=== PATIENT | female | born 1935 | race Caucasian/White ===

== ENCOUNTER → 2016-12-31 | Outpatient (CLI) | payer OTHER ==
--- NOTE | 2016-12-31 15:23 | MAMMOGRAPHY REPORT ---
UNILATERAL LEFT DIGITAL SCREENING MAMMOGRAM TOMOSYNTHESIS WITH CAD: 12/31/2016 CLINICAL HISTORY: Asymptomatic. Personal history of breast cancer. right mastectomy. TECHNIQUE: Breast tomosynthesis in addition to standard 2D mammography was performed. Current study was also evaluated with a Computer Aided Detection (CAD) system. Left CC and MLO 2-D and tomosynthes is images were obtained. COMPARISON: Comparison is made to exams dated: 12/17/2014 mammogram, 12/19/2015 mammogram, 12/14/2013 m ammogram, 12/07/2012 mammogram, 12/07/2011 mammogram, and 12/02/2010 mammogram - [facility] enter. BREAST COMPOSITION: There are scattered areas of fibroglandular density in the left breast. FINDINGS: There are no suspicious masses, calcifications, or areas of architectural distortion noted in the left breast. There has been no significant interval change compared to prior exams. The pat ient is status post right mastectomy. A linear scar marker denotes a scar on the left upper outer br east. Benign-appearing left anterior breast calcifications are stable compared to prior exams. IMPRESSION: ACR BI-RADS CATEGORY 2: BENIGN There is no mammographic evidence of malignancy. A 1 year screening mammogram is recommended. The pa tient will receive written notification of the results. Approximately 10% of breast cancers are not detected with mammography. A negative mammographic report should not delay biopsy if a clinically suggestive mass is present. Brenda Velasco M.D. ah/:12/31/2016 13:59:43 Commercial Designer: Etta FITZPATRICKR, M, [facility] letter sent: Normal 1/2 BI-RADS Code: ACR BI-RADS Category 2: Benign
== END | disposition home or self-care (01) ==
LOC: C.MAMM 12:08
PROVIDERS: ATTEND Internal Medicine
DX: Z12.31 Encounter for screening mammogram for malignant neoplasm of breast (principal); Z85.3 Personal history of malignant neoplasm of breast; Z90.11 Acquired absence of right breast and nipple

== ENCOUNTER → 2017-04-29 | Outpatient (CLI) | payer OTHER ==
[2017-04-29 17:44] LABS: URINE APPEARANCE CLEAR (CLEAR); URINE BILIRUBIN NEG (NEG); URINE COLOR YELLOW; URINE EPITHELIAL CELL AUTO 0-5 /lpf (0-5); URINE NITRITE NEG (NEG); URINE PH 6.5 (4.5-7.5); URINE SPECIFIC GRAVITY 1.012 (1.000-1.030); UROBILINOGEN NEG (NEG); ZZUR CULT IF INDIC CLEAN CATCH NO
[2017-04-29 17:47] LABS: MANUAL MICROSCOPIC REQUIRED? NO; REVIEW REQ? NO
[2017-04-29 17:51] LABS: ALT/SGPT 17 U/L (12-78); AST/SGOT 19 U/L (15-37); BASO % 0.3 %; BASO ABS # 0.01 K/uL (0-0.2); BLOOD UREA NITROGEN 15 mg/dl (7-18); BUN/CREATININE RATIO 15.9 (10-20); CALCIUM 9.6 mg/dl (8.5-10.1); CARBON DIOXIDE 30 mmol/L (21-32); CHLORIDE 102 mmol/L (98-107); COMPLETE YES; CREATININE 0.96 mg/dl (0.60-1.20); EOS % 3.5 %; GLUCOSE 101 mg/dl (70-99); HEMATOCRIT 34.2 % (37-47); IG% 0.3 %; LYMPH % 41.5 %; LYMPH ABS # 1.53 K/uL (1.2-3.4); MEAN CELL VOLUME 98.3 fL (80-100); MEAN CORPUSCULAR HEMOGLOBIN 32.5 pg (25-34); MEAN PLATELET VOLUME 11.4 fL (7.4-10.4); MONO % 11.7 %; NEUT % 42.7 %; PLATELET COUNT 234 K/uL (130-400); POTASSIUM 4.8 mmol/L (3.5-5.1); RED BLOOD COUNT 3.48 M/uL (4.2-5.4); SODIUM 136 mmol/L (136-145); WHITE BLOOD COUNT 3.69 K/uL (4.8-10.8)
[2017-04-29 17:53] LABS: ALB/GLOB RATIO 0.9 (0.9-2); ALKALINE PHOSPHATASE 74 U/L (45-117)
[2017-04-30 06:09] LABS: ESTIMATED AVERAGE GLUCOSE 100 mg/dl; HA1C FLAG Normal (Normal)
== END | disposition home or self-care (01) ==
LOC: C.LABBFT 13:56
PROVIDERS: ATTEND Internal Medicine
DX: R73.01 Impaired fasting glucose (principal); E55.9 Vitamin D deficiency, unspecified; D47.2 Monoclonal gammopathy

== ENCOUNTER → 2017-05-05 | Outpatient (CLI) | payer OTHER ==
[2017-05-05 12:19] LABS: BASO % 0.3 %; BASO ABS # 0.01 K/uL (0-0.2); COMPLETE YES; EOS % 3.6 %; HEMATOCRIT 33.3 % (37-47); IG% 0.3 %; LYMPH % 28.9 %; LYMPH ABS # 1.12 K/uL (1.2-3.4); MEAN CELL VOLUME 98.2 fL (80-100); MEAN CORPUSCULAR HEMOGLOBIN 32.7 pg (25-34); MEAN CORPUSCULAR HGB CONC 33.3 g/dl (32-36); MEAN PLATELET VOLUME 10.7 fL (7.4-10.4); MONO % 11.6 %; NEUT % 55.3 %; PLATELET COUNT 218 K/uL (130-400); RED BLOOD COUNT 3.39 M/uL (4.2-5.4); WHITE BLOOD COUNT 3.87 K/uL (4.8-10.8)
[2017-05-05 17:46] LABS: FERRITIN 255.7 ng/ml (8.0-388.0)
== END | disposition home or self-care (01) ==
LOC: C.LABBFT 10:25
PROVIDERS: ATTEND Internal Medicine
DX: D64.9 Anemia, unspecified (principal)

== ENCOUNTER → 2017-11-02 | Outpatient (CLI) | payer OTHER ==
[2017-11-02 16:53] LABS: BASO % 0.6 %; BASO ABS # 0.02 K/uL (0-0.2); EOS % 2.6 %; EOS ABS # 0.09 K/uL (0-0.5); HEMATOCRIT 33.9 % (37-47); HEMOGLOBIN 11.6 g/dL (12.0-16.0); IG# 0.01 K/uL (0.00-0.02); LYMPH % 42.2 %; LYMPH ABS # 1.45 K/uL (1.2-3.4); MEAN CORPUSCULAR HEMOGLOBIN 32.9 pg (25-34); MEAN CORPUSCULAR HGB CONC 34.2 g/dl (32-36); MEAN PLATELET VOLUME 10.9 fL (7.4-10.4); MONO % 10.5 %; MONO ABS # 0.36 K/uL (0.11-0.59); NEUT % 43.8 %; NEUT ABS # 1.51 K/uL (1.4-6.5); PLATELET COUNT 223 K/uL (130-400); RED CELL DISTRIBUTION WIDTH CV 13.9 % (11.5-14.5); RED CELL DISTRIBUTION WIDTH SD 48.2 fL (36.4-46.3); WHITE BLOOD COUNT 3.44 K/uL (4.8-10.8)
== END | disposition home or self-care (01) ==
LOC: C.LABBFT 14:17
PROVIDERS: ATTEND Internal Medicine
DX: D64.9 Anemia, unspecified (principal)

== ENCOUNTER → 2018-01-06 | Outpatient (CLI) | payer OTHER ==
--- NOTE | 2018-01-10 07:43 | MAMMOGRAPHY REPORT ---
UNILATERAL LEFT DIGITAL SCREENING MAMMOGRAM TOMOSYNTHESIS WITH CAD: 01/06/2018 CLINICAL HISTORY: Asymptomatic. Personal history of breast cancer. TECHNIQUE: The study was acquired using full field digital technology and interpreted from soft copy. Breast tomosynthesis in addition to standard 2D mammography was performed. Current study was also ev aluated with a Computer Aided Detection (CAD) system. COMPARISON: Comparison is made to exams dated: 12/31/2016 mammogram, 12/19/2015 mammogram, 12/17/2014 m ammogram, 12/14/2013 mammogram, 12/07/2012 mammogram, and 12/07/2011 mammogram - [facility] enter. BREAST COMPOSITION: There are scattered areas of fibroglandular density in left breast. FINDINGS: There are no suspicious masses, calcifications, or areas of architectural distortion noted within the left breast. There has been no significant interval change compared to prior exams. A li near scar marker denotes a scar on the left upper outer breast. Benign-appearing calcifications in t he left anterior breast are decreased compared to prior exams. An asymmetry in the left superior meri ast middle depth on the MLO view has the appearance of normal fibroglandular tissue on the tomosynthe sis images. IMPRESSION: There is no mammographic evidence of malignancy in the left breast. A 1 year screening mammogram is r ecommended.(01/07/2019) The patient will receive written notification of the results. Some breast cancers are not detected with mammography. A negative mammographic report should not monica y biopsy if a clinically suggestive mass is present. Brenda Velasco M.D. ah/:01/06/2018 16:54:11 Rail Washer: Nerissa Headley [facility] letter sent: Normal 1/2 BI-RADS Code: ACR BI-RADS Category 2: Benign
== END | disposition home or self-care (01) ==
LOC: C.MAMM 12:47
PROVIDERS: ATTEND Internal Medicine
DX: Z12.31 Encounter for screening mammogram for malignant neoplasm of breast (principal); Z90.11 Acquired absence of right breast and nipple; Z85.3 Personal history of malignant neoplasm of breast

== ENCOUNTER 2018-01-25 16:41 | Emergency (ER) | payer OTHER ==
[~2018-01-25] VITALS: Ht 160 cm; Wt 50.3 kg
[2018-01-25 16:44] VITALS: TEMP 36.7; Ht 160 cm; Wt 50.3 kg
[2018-01-25] MEDS ORDERED: SODIUM CHLORIDE 0.9% 500ML 500 ML IV STA (17:12)
[2018-01-25] MEDS ORDERED: OPTIRAY 320 IV PRN (17:30)
[2018-01-25] MEDS ORDERED: ASPI81TA28 PO (17:31)
[2018-01-25] MEDS ORDERED: PROP80TA2 PO (17:31)
[2018-01-25] MEDS ORDERED: LOSA1TAB38 PO (17:31)
[2018-01-25] MEDS ORDERED: RANI150T85 PO (17:31)
[2018-01-25] MEDS ORDERED: TIMO0.5S2 OP (17:31)
[2018-01-25] MEDS ORDERED: CHOL20007 PO (17:31)
[2018-01-25] MEDS ORDERED: TRAM-10 PO (17:31)
--- NOTE | 2018-01-25 17:32 | EMERGENCY ROOM VISIT NOTE ---
History Report prepared by Marlee: Ari Harris Under the Supervision of: Dr. To Sharp M.D. First contact with patient: 17:08 Chief Complaint: SHORTNESS OF BREATH Stated Complaint: STROKE LIKE SYMPTOMS Nursing Triage Summary: Patient presents to triage via wheelchair with her son, daughter and daughter in law. Patient states "I am having shortness of breath which started this afternoon. I had a test this morning. I was a little bit dizzy when I came home today. I was having some back pain after the test so, on an empty stomach, I took some of my tamadol." Patient denies any chest pain. No headache or dizziness currently. Patient is able to move all of her extremities. Patient is able to answer all questions appropriately. History of Present Illness The patient is a 82 year old female who presents to the Emergency Room with complaints of constant fatigue and confusion beginning this morning after a stress test done through [facility]. The patient reports that the reason for her stress test this morning was shortness of breath that she has had for awhile. She notes that she was able to complete the test. Family reports that after the test, they noticed that the patient seemed exhausted and confused, noting slightly slurred speech and stating that her answers to questions did not make much sense. The family states that these symptoms in the patient currently seem improved. They report that the last time she ate solid food was last night, and stated that they stopped for food on the way home from the stress test, during which the patient didn't eat because she was too "dry." They state that the patient did have something to drink at that time. The patient reports that she is not currently feeling short of breath. Source of History: patient, family Onset: this morning Position: other (global) Quality: other (confusion and fatigue) Timing: constant (but currently seems to be improved) Note: no current shortness of breath Review of Systems See HPI for pertinent positives and negatives. A total of ten systems were reviewed and were otherwise negative. Past Medical & Surgical Medical Problems: (1) Chronic back pain Family History Patient reports no known family medical history. Social History Smoking Status: Former Smoker Current/Historical Medications Scheduled Aspirin (Aspirin Ec), 81 MG PO DAILY Cholecalciferol (Vitamin D3), 2,000 UNITS PO DAILY Losartan Potassium (Cozaar), 100 MG PO DAILY Propranolol (Inderal), 80 MG PO DAILY Ranitidine (Zantac), 150 MG PO BID Timolol Maleate (Ophth) (Timoptic-Xe 0.5% Oph), 1 DROPS OP QAM Tramadol (Ultram), 50 MG PO QAM Allergies Coded Allergies: No Known Allergies (Verified , 01/25/18) Physical Exam Vital Signs Date Time Temp Pulse Resp B/P (MAP) Pulse Ox O2 Delivery O2 Flow Rate FiO2 01/25/18 21:11 58 18 169/71 98 01/25/18 18:30 65 20 177/85 97 Room Air 01/25/18 18:00 61 01/25/18 17:51 99 Room Air 01/25/18 16:53 95 Room Air 01/25/18 16:44 36.7 55 16 146/69 99 Room Air Physical Exam GENERAL: Awake, alert, well-appearing, in no acute distress HENT: Normocephalic, atraumatic. Mucous membranes are dry. EYES: Normal conjunctiva. Sclera non-icteric. NECK: Supple. No nuchal rigidity. FROM. No JVD. RESPIRATORY: Clear to auscultation. CARDIAC: Regular rate, normal rhythm. Extremities warm and well perfused. Pulses equal. ABDOMEN: Soft, non-distended. No tenderness to palpation. No rebound or guarding. No masses. RECTAL: Deferred. MUSCULOSKELETAL: Chest examination reveals no tenderness. The back is symmetrical on inspection without obvious abnormality. There is no CVA tenderness to palpation. No joint edema. LOWER EXTREMITIES: Calves are equal size bilaterally and non-tender. No edema. No discoloration. NEURO: Normal sensorium. No sensory or motor deficits noted. Mild confusion noted, and patient did not remember that she just used the restroom. Normal cerebellar function with [id number], alternating palms, [id number] SKIN: No rash or jaundice noted. Medical Decision & Procedures ER Provider Diagnostic Interpretation: Radiology results as stated below per my review and radiologist interpretation: HEAD & NECK CTA HISTORY: Stroke symptoms. Weakness. TECHNIQUE: Multiaxial CT images of the head were performed following the intravenous administration of contrast to evaluate the major cerebral vessels. Multiaxial CT images of the neck were also performed following the intravenous administration of contrast to evaluate the major cervical vessels. Maximum intensity projection images were also obtained. A dose lowering technique was utilized adhering to the principles of ALARA. COMPARISON: Head CT 01/25/2018. FINDINGS: There is no mass, hematoma, midline shift, or acute infarct. Visualized intracranial internal carotid arteries, distal vertebral arteries, and basilar artery are widely patent. There is no significant stenosis, occlusion, or aneurysm seen within the bilateral ACAs, MCAs, or electric motor controls assembler. The aortic arch and proximal great vessels are widely patent. There is no significant stenosis, occlusion, or dissection identified within the bilateral common carotid, internal carotid, or vertebral arteries. 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 Mild calcified plaque within the right carotid bifurcation. IMPRESSION: 1. No significant stenosis, occlusion, or aneurysm within the [place]. 2. No significant stenosis, occlusion, or dissection identified within the carotid or vertebral arteries. Electronically signed by: Vasquez Treviño M.D. 01/25/2018 7:27 PM Dictated Date/Time: 01/25/2018 7:21 PM HEAD & NECK CTA HISTORY: Stroke symptoms. Weakness. TECHNIQUE: Multiaxial CT images of the head were performed following the intravenous administration of contrast to evaluate the major cerebral vessels. Multiaxial CT images of the neck were also performed following the intravenous administration of contrast to evaluate the major cervical vessels. Maximum intensity projection images were also obtained. A dose lowering technique was utilized adhering to the principles of ALARA. COMPARISON: Head CT 01/25/2018. FINDINGS: There is no mass, hematoma, midline shift, or acute infarct. Visualized intracranial internal carotid arteries, distal vertebral arteries, and basilar artery are widely patent. There is no significant stenosis, occlusion, or aneurysm seen within the bilateral ACAs, MCAs, or electric motor controls assembler. The aortic arch and proximal great vessels are widely patent. There is no significant stenosis, occlusion, or dissection identified within the bilateral common carotid, internal carotid, or vertebral arteries. 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 Mild calcified plaque within the right carotid bifurcation. IMPRESSION: 1. No significant stenosis, occlusion, or aneurysm within the [place]. 2. No significant stenosis, occlusion, or dissection identified within the carotid or vertebral arteries. Electronically signed by: Vasquez Treviño M.D. 01/25/2018 7:27 PM Dictated Date/Time: 01/25/2018 7:21 PM CHEST ONE VIEW PORTABLE CLINICAL HISTORY: 82 years-old Female presenting with CHEST PAIN. TECHNIQUE: Portable upright AP view of the chest was obtained. COMPARISON: 11/07/2015. FINDINGS: Atherosclerosis of the aortic arch. Cardiac silhouette normal in size. Lungs are hyperinflated. Heterogeneously lucent lungs. No focal opacity. No large effusion or pneumothorax. Degenerative changes of the thoracic spine. Cholecystectomy clips noted. Multiple external leads project over the upper abdomen. IMPRESSION: 1. Findings suggest emphysema. No focal infiltrate to suggest pneumonia. Electronically signed by: Adrien Hansen M.D. 01/25/2018 6:21 PM Dictated Date/Time: 01/25/2018 6:[address] CT DOSE: HISTORY: Stroke symptoms. TECHNIQUE: Multiaxial CT images of the head were performed without the use of intravenous contrast. Automated exposure control was utilized for this study. A dose lowering technique was utilized adhering to the principles of ALARA. Comparison: None. Findings: The paranasal sinuses and mastoid air cells are clear. The calvarium and skull base are intact. There is no mass, hematoma, midline shift, acute infarct. White matter hypodensity is nonspecific but suggestive of microvascular ischemic change. The ventricles and sulci demonstrate mild age-related involutional changes. Punctate hypodense foci within the right occipital lobe on image 12 likely represent old small infarcts. Impression: No acute intracranial abnormality. Chronic changes as described above. Electronically signed by: Vasquez Treviño M.D. 01/25/2018 7:21 PM Dictated Date/Time: 01/25/2018 7:18 PM Laboratory Results 01/25/18 18:12 Red Blood Count 3.54, Mean Corpuscular Volume 95.5, Mean Corpuscular Hemoglobin 33.3, Mean Corpuscular Hemoglobin Concent 34.9, Mean Platelet Volume 10.8, Neutrophils (%) (Auto) 60.8, Lymphocytes (%) (Auto) 27.3, Monocytes (%) (Auto) 9.7, Eosinophils (%) (Auto) 1.6, Basophils (%) (Auto) 0.3, Neutrophils # (Auto) 2.25, Lymphocytes # (Auto) 1.01, Monocytes # (Auto) 0.36, Eosinophils # (Auto) 0.06, Basophils # (Auto) 0.01 01/25/18 18:12 Test 01/25/18 17:15 01/25/18 18:12 01/25/18 18:22 Urine Color YELLOW Urine Appearance CLEAR (CLEAR) Urine pH 5.5 (4.5-7.5) Urine Specific [place] 1.012 (1.000-1.030) Urine Protein NEG (NEG) Urine Glucose (UA) NEG (NEG) Urine Ketones NEG (NEG) Urine Occult Blood NEG (NEG) Urine Nitrite NEG (NEG) Urine Bilirubin NEG (NEG) Urine Urobilinogen NEG (NEG) Urine Leukocyte Esterase TRACE (NEG) Urine WBC (Auto) 1-5 /hpf (0-5) Urine RBC (Auto) 0-4 /hpf (0-4) Urine Hyaline Casts (Auto) 1-5 /lpf (0-5) Urine Epithelial Cells (Auto) >30 /lpf (0-5) Urine Bacteria (Auto) NEG (NEG) White Blood Count 3.70 K/uL (4.8-10.8) Red Blood Count 3.54 M/uL (4.2-5.4) Hemoglobin 11.8 g/dL (12.0-16.0) Hematocrit 33.8 % (37-47) Mean Corpuscular Volume 95.5 fL (80-100) Mean Corpuscular Hemoglobin 33.3 pg (25-34) Mean Corpuscular Hemoglobin Concent 34.9 g/dl (32-36) Platelet Count 196 K/uL (130-400) Mean Platelet Volume 10.8 fL (7.4-10.4) Neutrophils (%) (Auto) 60.8 % Lymphocytes (%) (Auto) 27.3 % Monocytes (%) (Auto) 9.7 % Eosinophils (%) (Auto) 1.6 % Basophils (%) (Auto) 0.3 % Neutrophils # (Auto) 2.25 K/uL (1.4-6.5) Lymphocytes # (Auto) 1.01 K/uL (1.2-3.4) Monocytes # (Auto) 0.36 K/uL (0.11-0.59) Eosinophils # (Auto) 0.06 K/uL (0-0.5) Basophils # (Auto) 0.01 K/uL (0-0.2) RDW Standard Deviation 46.9 fL (36.4-46.3) RDW Coefficient of Variation 13.4 % (11.5-14.5) Immature Granulocyte % (Auto) 0.3 % Immature Granulocyte # (Auto) 0.01 K/uL (0.00-0.02) Prothrombin Time 11.2 SECONDS (9.0-12.0) Prothromb Time International Ratio 1.1 (0.9-1.1) Est Creatinine Clear Calc Drug Dose 30.5 ml/min Estimated GFR () 54.0 Estimated GFR (Non- 46.6 BUN/Creatinine Ratio 14.4 (10-20) Calcium Level 8.3 mg/dl (8.5-10.1) Phosphorus Level 2.7 mg/dl (2.5-4.9) Magnesium Level 2.2 mg/dl (1.8-2.4) Total Bilirubin 0.9 mg/dl (0.2-1) Direct Bilirubin 0.3 mg/dl (0-0.2) Aspartate Amino Transf (AST/SGOT) 14 U/L (15-37) Alanine Aminotransferase (ALT/SGPT) 15 U/L (12-78) Alkaline Phosphatase 75 U/L (45-117) Troponin I 0.021 ng/ml (0-0.045) Pro-B-Type Natriuretic Peptide 2135 pg/ml (0-1800) Total Protein 8.1 gm/dl (6.4-8.2) Albumin 3.9 gm/dl (3.4-5.0) Lipase 202 U/L (73-393) Bedside Hemoglobin 11.9 g/dl (12.0-16.0) Bedside Hematocrit 35 % (37-47) Bedside Sodium 137 mEq/L (135-144) Bedside Potassium 4.3 mEq/L (3.3-5.0) Bedside Chloride 97 mEq/L (101-112) Bedside Total CO2 28 mEq/l (24-31) Anion Gap 17.0 mmol/L (16-25) Bedside Blood Urea Nitrogen 16 mg/dl (7-18) Bedside Creatinine 1.0 mg/dl (0.6-1.3) Bedside Glucose (other) 106 mg/dl (70-99) Bedside Ionized Calcium (Narciso) 1.06 mmol/l (1.12-1.32) Laboratory results reviewed by me Medications Administered Medications (Trade) Dose Ordered Sig/[place] Route Start Time Stop Time Status Last Admin Dose Admin Sodium Chloride 500 ml @ 999 mls/hr Q31M STAT IV 01/25/18 17:12 01/25/18 17:42 DC 01/25/18 18:10 999 MLS/HR ECG Per My Interpretation Indication: other (confusion, exhaustion) Rate (beats per minute): 63 Rhythm: normal sinus Findings: no acute ischemic change, other (normal axis) ED Course 1710: The patient was evaluated in room A3. A complete history and physical exam was performed. 1958: I reevaluated the patient. Discussed results and discharge instructions: She verbalized understanding and agreement. The patient is ready for discharge. Medical Decision I reviewed the patient's past medical history, medications, and the nursing notes as described above. Differential diagnosis: Etiologies such as metabolic, infection, hypo/hyperglycemia, electrolyte abnormalities, cardiac sources, intracerebral event, toxicologic, neurologic, as well as others were entertained. The patient is a pleasant 82-year-old woman who presents emergency department with increased confusion after having an outpatient nuclear stress test today which was arranged by her PCP for intermittent shortness of breath per HPI. Family report that the patient had fasted for her stress test today and on the way home was able to drink fluids after stopping at [employer] but still has not eaten. However she did take a tramadol this morning for her back pain and then again when she got home. Arrival the patient is no acute distress, afebrile stable vital signs. On exam, the patient appears clinically dry. He is neurologically intact including normal cerebellar function with finger-to- nose, alternating palms, [id number]. The patient does seem to have some mild difficulty following complicated commands when asked to perform heel to tadeo, which is not uncommon in a patient in this age group however the family reports this is not her normal functioning which is normally very sharp. EKG unremarkable. Troponin within normal limits. WBC 3.7 nonspecific. Chemistry unremarkable. UA negative for infection. Chest x-ray negative. CT of the head and neck unremarkable for ischemia or large vessel occlusion. Patient subsequently feeling improved after IV fluid hydration. Son at bedside feeling reassured of her improvement we feel that her symptoms are most likely related to her prolonged fasting throughout today. I did explain to the family that the only way to truly rule out a possible stroke would be to perform an MRI. However, they feel comfortable with plan for discharge and PCP follow-up. They are aware to return if the patient symptoms return. Findings and plan for follow -up reviewed with patient. Patient agreeable and d/c'd per discharge instructions. Medication Reconcilliation Current Medication List: was personally reviewed by me Blood Pressure Screening Patient's blood pressure: Elevated blood pressure Blood pressure disposition: Elevated BP felt to be situational Impression Primary Impression: Intermittent confusion Additional Impression: Dehydration Scribe Attestation The scribe's documentation has been prepared under my direction and personally reviewed by me in its entirety. I confirm that the note above accurately reflects all work, treatment, procedures, and medical decision making performed by me. Departure Information Dispostion Home / Self-Care Referrals Jeremiah Arriaga M.D. (PCP) Forms HOME CARE DOCUMENTATION FORM, IMPORTANT VISIT INFORMATION Patient Instructions ED Confusion, ED Dehydration, My [facility] Additional Instructions Please follow up with your primary care physician in the next 1-3 days for re- evaluation Your symptoms are likely due to your fasting today. Otherwise, your exam, EKG, chest xray, lab results, CT scan of your head and neck with contrast did not show signs of an emergent condition at this time. Drink plenty of fluids to ensure hydration. Return to the emergency department for worsening symptoms as described in the accompanying instructions. Problem Qualifiers
[2018-01-25 17:51] VITALS: O2SAT 99
[2018-01-25 18:23] LABS: BASO % 0.3 %; BASO ABS # 0.01 K/uL (0-0.2); EOS % 1.6 %; EOS ABS # 0.06 K/uL (0-0.5); HEMATOCRIT 33.8 % (37-47); HEMOGLOBIN 11.8 g/dL (12.0-16.0); IG# 0.01 K/uL (0.00-0.02); LYMPH % 27.3 %; LYMPH ABS # 1.01 K/uL (1.2-3.4); MEAN CELL VOLUME 95.5 fL (80-100); MEAN CORPUSCULAR HEMOGLOBIN 33.3 pg (25-34); MEAN CORPUSCULAR HGB CONC 34.9 g/dl (32-36); MEAN PLATELET VOLUME 10.8 fL (7.4-10.4); MONO % 9.7 %; MONO ABS # 0.36 K/uL (0.11-0.59); NEUT % 60.8 %; NEUT ABS # 2.25 K/uL (1.4-6.5); PLATELET COUNT 196 K/uL (130-400); RED CELL DISTRIBUTION WIDTH CV 13.4 % (11.5-14.5); RED CELL DISTRIBUTION WIDTH SD 46.9 fL (36.4-46.3)
--- NOTE | 2018-01-25 18:23 | DIAGNOSTIC IMAGING REPORT ---
CHEST ONE VIEW PORTABLE CLINICAL HISTORY: 82 years-old Female presenting with CHEST PAIN. TECHNIQUE: Portable upright AP view of the chest was obtained. COMPARISON: 11/07/2015. FINDINGS: Atherosclerosis of the aortic arch. Cardiac silhouette normal in size. Lungs are hyperinflated. Heterogeneously lucent lungs. No focal opacity. No large effusion or pneumothorax. Degenerative changes of the thoracic spine. Cholecystectomy clips noted. Multiple external leads project over the upper abdomen. IMPRESSION: 1. Findings suggest emphysema. No focal infiltrate to suggest pneumonia. Electronically signed by: Adrien Hansen M.D. 01/25/2018 6:21 PM Dictated Date/Time: 01/25/2018 6:09 PM
[2018-01-25 18:33] LABS: INR 1.1 (0.9-1.1)
[2018-01-25 18:50] LABS: ALBUMIN 3.9 gm/dl (3.4-5.0); CALCIUM 8.3 mg/dl (8.5-10.1); CREATININE 1.09 mg/dl (0.60-1.20); PHOSPHORUS 2.7 mg/dl (2.5-4.9); POTASSIUM 4.2 mmol/L (3.5-5.1); TOTAL PROTEIN 8.1 gm/dl (6.4-8.2)
--- NOTE | 2018-01-25 19:22 | DIAGNOSTIC IMAGING REPORT ---
HEAD CT NONCONTRAST CT DOSE: HISTORY: Stroke symptoms. TECHNIQUE: Multiaxial CT images of the head were performed without the use of intravenous contrast. Automated exposure control was utilized for this study. A dose lowering technique was utilized adhering to the principles of ALARA. Comparison: None. Findings: The paranasal sinuses and mastoid air cells are clear. The calvarium and skull base are intact. There is no mass, hematoma, midline shift, acute infarct. White matter hypodensity is nonspecific but suggestive of microvascular ischemic change. The ventricles and sulci demonstrate mild age-related involutional changes. Punctate hypodense foci within the right occipital lobe on image 12 likely represent old small infarcts. Impression: No acute intracranial abnormality. Chronic changes as described above. Electronically signed by: Vasquez Treviño M.D. 01/25/2018 7:21 PM Dictated Date/Time: 01/25/2018 7:18 PM
--- NOTE | 2018-01-25 19:28 | DIAGNOSTIC IMAGING REPORT ---
HEAD & NECK CTA HISTORY: Stroke symptoms. Weakness. TECHNIQUE: Multiaxial CT images of the head were performed following the intravenous administration of contrast to evaluate the major cerebral vessels. Multiaxial CT images of the neck were also performed following the intravenous administration of contrast to evaluate the major cervical vessels. Maximum intensity projection images were also obtained. A dose lowering technique was utilized adhering to the principles of ALARA. COMPARISON: Head CT 01/25/2018. FINDINGS: There is no mass, hematoma, midline shift, or acute infarct. Visualized intracranial internal carotid arteries, distal vertebral arteries, and basilar artery are widely patent. There is no significant stenosis, occlusion, or aneurysm seen within the bilateral ACAs, MCAs, or cylinder handler. The aortic arch and proximal great vessels are widely patent. There is no significant stenosis, occlusion, or dissection identified within the bilateral common carotid, internal carotid, or vertebral arteries. 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 Mild calcified plaque within the right carotid bifurcation. IMPRESSION: 1. No significant stenosis, occlusion, or aneurysm within the [place]. 2. No significant stenosis, occlusion, or dissection identified within the carotid or vertebral arteries. Electronically signed by: Vasquez Treviño M.D. 01/25/2018 7:27 PM Dictated Date/Time: 01/25/2018 7:21 PM
--- NOTE | 2018-01-25 19:28 | DIAGNOSTIC IMAGING REPORT ---
HEAD & NECK CTA HISTORY: Stroke symptoms. Weakness. TECHNIQUE: Multiaxial CT images of the head were performed following the intravenous administration of contrast to evaluate the major cerebral vessels. Multiaxial CT images of the neck were also performed following the intravenous administration of contrast to evaluate the major cervical vessels. Maximum intensity projection images were also obtained. A dose lowering technique was utilized adhering to the principles of ALARA. COMPARISON: Head CT 01/25/2018. FINDINGS: There is no mass, hematoma, midline shift, or acute infarct. Visualized intracranial internal carotid arteries, distal vertebral arteries, and basilar artery are widely patent. There is no significant stenosis, occlusion, or aneurysm seen within the bilateral ACAs, MCAs, or bill clerk. The aortic arch and proximal great vessels are widely patent. There is no significant stenosis, occlusion, or dissection identified within the bilateral common carotid, internal carotid, or vertebral arteries. 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 Mild calcified plaque within the right carotid bifurcation. IMPRESSION: 1. No significant stenosis, occlusion, or aneurysm within the [place]. 2. No significant stenosis, occlusion, or dissection identified within the carotid or vertebral arteries. Electronically signed by: Vasquez Treviño M.D. 01/25/2018 7:27 PM Dictated Date/Time: 01/25/2018 7:21 PM
[2018-01-25 19:57] LABS: ISTAT IONIZED CALCIUM 1.06 mmol/l (1.12-1.32); ISTAT POTASSIUM 4.3 mEq/L (3.3-5.0)
[2018-01-25 21:11] VITALS: BP 169/71; PULSE 58; O2SAT 98
== END 2018-01-25 21:12 | disposition home or self-care (01) ==
LOC: C.EDB 16:43 → C.EDA 21:12
DX: R41.0 Disorientation, unspecified (principal); E86.0 Dehydration; G89.29 Other chronic pain; M54.9 Dorsalgia, unspecified; Z87.891 Personal history of nicotine dependence; Z79.82 Long term (current) use of aspirin; Z79.899 Other long term (current) drug therapy